=== PATIENT | male | born 1980 | race Caucasian/White ===

== ENCOUNTER 2017-05-28 18:10 | Emergency (ER) | payer MEDICARE, MEDICAID ==
[~2017-05-28] VITALS: Ht 175.3 cm; Wt 103.4 kg
[~2017-05-28 18:10] MED LIST: ACET500C3 PO; BUPR150T73 PO; FLUO20CA19 PO; HYDR50CA PO; OXYC-302 PO; PALI234D IM; PALI234D INJ; TOPI50TA35 PO
[2017-05-28 18:11] VITALS: BP 120/84
== END 2017-05-28 18:33 | disposition home or self-care (01) ==
LOC: ED 18:30
DX: T63.301A Toxic effect of unspecified spider venom, accidental (unintentional), initial encounter (principal); F31.9 Bipolar disorder, unspecified; Y93.89 Activity, other specified; Y99.8 Other external cause status; Y92.89 Other specified places as the place of occurrence of the external cause
CPT/HCPCS: 99283

== ENCOUNTER 2019-02-04 15:41 | Emergency (ER) | payer MEDICARE, MEDICAID ==
[~2019-02-04] VITALS: Ht 177.8 cm; Wt 85.0 kg
--- NOTE | 2019-02-04 15:46 | NUR ---
BIB [facility]. C/O WILLETT and auditory and visual hallucinations. Denies HI/SI. Received monthly Invega dose 4 days ago. Will continue to monitor.
[2019-02-04] MEDS ORDERED: ZIPRASIDONE 20 MG INJ IM ONE ×2 (15:50→16:00)
[2019-02-04] MEDS ORDERED: IBUPROFEN 800 MG TABLET ONE (15:50)
[2019-02-04] MEDS ORDERED: IBUPROFEN 800 MG TABLET PO ONE (16:00)
[2019-02-04 16:10] LABS: BASOPHILS # (AUTO) 0.01 x10^3/uL (0-0.1); BASOPHILS % (AUTO) 0 % (0-1); EOSINOPHILS # (AUTO) 0.04 x10^3/uL (0-0.4); EOSINOPHILS % (AUTO) 1 % (1-7); LYMPHOCYTES # (AUTO) 2.25 x10^3/uL (1-3.4); LYMPHOCYTES % (AUTO) 34 % (22-44); MD NO; MEAN CORPUSCULAR HEMOGLOBIN 31.3 pg (27.5-34.5); MEAN CORPUSCULAR HGB CONC 34.6 g/dL (33.2-36.2); MEAN CORPUSCULAR VOLUME 90.6 fL (81-97); MEAN PLATELET VOLUME 7.8 fL (7.4-10.4); MONOCYTES # (AUTO) 0.48 x10^3/uL (0.2-0.8); MONOCYTES % (AUTO) 7 % (2-9); NEUTROPHILS # (AUTO) 3.93 x10^3/uL (1.8-6.8); NEUTROPHILS % (AUTO) 59 % (42-75); PLATELET COUNT 295 x10^3/uL (130-400); RED BLOOD COUNT 4.64 x10^6/uL (4.38-5.82); RED CELL DISTRIBUTION WIDTH 13.3 % (9.4-14.8)
[2019-02-04 16:22] LABS: ALBUMIN 3.5 g/dL (3.4-5.0); ANION GAP 5 mmol/L (5-15); CALCIUM 8.6 mg/dL (8.5-10.1); CHLORIDE 113 mmol/L (98-107); CREATININE 1.34 mg/dL (0.7-1.3)
[2019-02-04 16:30] VITALS: BP 117/76
--- NOTE | 2019-02-04 16:30 | NUR ---
Resting comfortably in [facility]. VSS. No other needs.
--- NOTE | 2019-02-04 16:59 | NUR ---
Float RN: Pt walked from room to restroom unassisted w/ steady gait.
--- NOTE | 2019-02-04 17:06 | NUR ---
Rianna RN: Patient given discharge instructions and they have confirmed that they understand the instructions. Pt promptly threw d/c instructions into garbage.
== END 2019-02-04 17:08 | disposition home or self-care (01) ==
LOC: ED 17:00
DX: F31.9 Bipolar disorder, unspecified (principal); F23 Brief psychotic disorder; F06.0 Psychotic disorder with hallucinations due to known physiological condition; F41.1 Generalized anxiety disorder; G89.29 Other chronic pain; Z90.89 Acquired absence of other organs; Z90.49 Acquired absence of other specified parts of digestive tract
CPT/HCPCS: 36415; 80048; 82040; 85025; 99284; J3486

== ENCOUNTER 2019-04-06 15:14 | Emergency (ER) | payer MEDICARE, MEDICAID ==
[~2019-04-06] VITALS: Ht 175.3 cm; Wt 98.0 kg
[2019-04-06 15:18] VITALS: BP 104/70
== END 2019-04-06 15:55 | disposition home or self-care (01) ==
LOC: ED 15:50
DX: K08.89 Other specified disorders of teeth and supporting structures (principal); F41.1 Generalized anxiety disorder; G43.909 Migraine, unspecified, not intractable, without status migrainosus; F31.9 Bipolar disorder, unspecified; F09 Unspecified mental disorder due to known physiological condition
CPT/HCPCS: 99283

== ENCOUNTER 2019-04-07 12:11 | Emergency (ER) | payer MEDICARE, MEDICAID ==
[~2019-04-07] VITALS: Ht 175.3 cm; Wt 98.5 kg
[2019-04-07 12:20] VITALS: BP 132/81
== END 2019-04-07 20:32 ==
LOC: ED 14:14
DX: F33.1 Major depressive disorder, recurrent, moderate (principal); G89.4 Chronic pain syndrome
CPT/HCPCS: 36415; 80048; 80307; 82040; 85025; 99284; 99285

== ENCOUNTER 2019-04-07 19:27 | Inpatient (IN) | payer MEDICARE, MEDICAID ==
[~2019-04-07] VITALS: Ht 175.3 cm; Wt 100.0 kg
[2019-04-07] MEDS ORDERED: POLYETHYLENE GLYCOL 17 GM PACKET PO PRN (20:00)
[2019-04-07] MEDS ORDERED: DOCUSATE 100 MG CAPSULE PO PRN (20:00)
[2019-04-07] MEDS ORDERED: BISACODYL 10 MG SUPP PR PRN (20:00)
[2019-04-07 20:46] VITALS: BP_SYST 113; BP_SYST 134; BP_SYST 138; BP_DIAS 77; BP_DIAS 89
[2019-04-07] MEDS ORDERED: NICOTINE 21 MG/24 HR PATCH.TD24 TD ONE (22:30)
[2019-04-08] MEDS: ACETAMINOPHEN 325 MG TABLET PO PRN ×2 (05:56→20:16)
[2019-04-08 06:04] LABS: MICROSCOPIC NOT IND
[2019-04-08 06:10] LABS: CULTURE INDICATED? NO
[2019-04-08 06:13] LABS: ANION GAP 8 mmol/L (5-15); CALCIUM 8.9 mg/dL (8.5-10.1); CHLORIDE 110 mmol/L (98-107); CHOLESTEROL, TOTAL 181 mg/dL (140-239)
[2019-04-08 06:39] LABS: CHOL/HDL RATIO 4.3; FREE T4 (FREE THYROXINE) 0.95 ng/dL (0.76-1.46); HDL CHOL % 23 % (26-37); HDL CHOLESTEROL (DIRECT) 42 mg/dL (40-60); LDL CHOLESTEROL,CALCULATED 78 mg/dL (54-169); LDL/HDL RATIO 1.9 (0.5-3.0); TRIGLYCERIDES 305 mg/dL (50-200); VLDL CHOLESTEROL 61 mg/dL (0-25)
[2019-04-08 07:34] VITALS: BP 124/83
[2019-04-08] MEDS: NICOTINE GUM 2 MG BC PRN ×4 (11:51→22:50)
[2019-04-08] MEDS: hydrOXyzine 50MG TABLET PO PRN (11:51)
[2019-04-08] MEDS ORDERED: BUPRENORPHINE/NALOXONE 2-0.5MG SL SCH (15:30)
[2019-04-08 19:21] VITALS: BP 131/84
[2019-04-08] MEDS: ARIPIPRAZOLE 5 MG TABLET PO SCH (20:16)
[2019-04-08] MEDS: HYDROXYZINE PAMOATE 50MG CAP PO PRN (23:41)
[2019-04-09] MEDS ORDERED: ARIP5TAB13 PO (03:50)
[2019-04-09] MEDS ORDERED: BUPR150T73 PO (03:51)
[2019-04-09] MEDS ORDERED: HYDR50CA PO (03:52)
[2019-04-09] MEDS ORDERED: BUPR1FIL3 SL (03:53)
[2019-04-09] MEDS: BUPRENORPHINE/NALOXONE 2-0.5MG SL SCH ×3 (05:09→21:29)
[2019-04-09 07:29] VITALS: BP 107/79
[2019-04-09] MEDS: NICOTINE GUM 2 MG BC PRN ×4 (07:29→20:31)
[2019-04-09] MEDS ORDERED: BUPRENORPHINE/NALOXONE 2-0.5MG SL SCH (08:00)
[2019-04-09] MEDS: BUPROPION SR 150 MG TABLET PO SCH (09:20)
[2019-04-09] MEDS: hydrOXyzine 50MG TABLET PO PRN (13:02)
[2019-04-09] MEDS: HYDROXYZINE PAMOATE 50MG CAP PO PRN (19:17)
[2019-04-09 19:52] VITALS: BP 136/84
[2019-04-09] MEDS: ARIPIPRAZOLE 5 MG TABLET PO SCH (21:29)
[2019-04-10] MEDS: NICOTINE GUM 2 MG BC PRN ×5 (00:03→20:51)
[2019-04-10 07:10] VITALS: BP 123/82
[2019-04-10] MEDS: HYDROXYZINE PAMOATE 50MG CAP PO PRN (08:47)
[2019-04-10] MEDS: BUPROPION SR 150 MG TABLET PO SCH (08:47)
[2019-04-10] MEDS: BUPRENORPHINE/NALOXONE 2-0.5MG SL SCH ×2 (09:47→20:51)
[2019-04-10] MEDS ORDERED: ALUMINUM/MAG/SIMETHICONE 30 ML UDC ONE (11:42)
[2019-04-10 19:46] VITALS: BP 136/90
[2019-04-10] MEDS: ARIPIPRAZOLE 5 MG TABLET PO SCH (20:51)
[2019-04-11] MEDS: NICOTINE GUM 2 MG BC PRN ×2 (00:37→06:30)
[2019-04-11] MEDS ORDERED: BUPR150T73 PO (07:05)
[2019-04-11] MEDS ORDERED: ARIP5TAB19 PO (07:05)
[2019-04-11 07:17] VITALS: BP 111/82
[2019-04-11] MEDS: BUPROPION SR 150 MG TABLET PO SCH (08:29)
[2019-04-11] MEDS: ACETAMINOPHEN 325 MG TABLET PO PRN (08:29)
== END 2019-04-11 09:05 | disposition home or self-care (01) | DRG 885 ==
LOC: 3E 20:42
PROVIDERS: ADMIT Psychiatry & Neurology Psychosomatic Medicine; ATTEND Psychiatry & Neurology Psychosomatic Medicine
DX: F25.0 Schizoaffective disorder, bipolar type (principal); N17.0 Acute kidney failure with tubular necrosis; R45.851 Suicidal ideations; F11.20 Opioid dependence, uncomplicated; F17.210 Nicotine dependence, cigarettes, uncomplicated; Z80.8 Family history of malignant neoplasm of other organs or systems; Z76.5 Malingerer [conscious simulation]; Z80.0 Family history of malignant neoplasm of digestive organs; Z81.8 Family history of other mental and behavioral disorders; Z79.899 Other long term (current) drug therapy; Z90.49 Acquired absence of other specified parts of digestive tract; Z88.8 Allergy status to other drugs, medicaments and biological substances; Z91.030 Bee allergy status
CPT/HCPCS: 36415; 71045; 80048; 80061; 81003; 82140; 82607; 84439; 84443; 86592; 93005

== ENCOUNTER 2019-04-11 21:52 | Emergency (ER) | payer MEDICARE, MEDICAID ==
[~2019-04-11] VITALS: Ht 175.3 cm; Wt 100.1 kg
[~2019-04-11 21:52] MED LIST changes: +ARIP5TAB13 PO; +ARIP5TAB19 PO; +BUPR1FIL3 SL
--- NOTE | 2019-04-11 22:10 | NUR ---
States d/c from [facility] today and took 30, 600 mg, ibuprofen. States "i dont want to make it anymore... my mom just ....i just dont want to be alive anymore." Belongings moved to locker: 1 personal belongings bag and 1 backpack. Urine specimen collected and sent to lab. Pt resting on gurney, calm, cooperative, vitals stable, respirations even and unlabored, no apparent distress noted.
[2019-04-11 22:58] LABS: AMPHETAMINE SCREEN, URINE Negative (Negative); BARBITURATE SCREEN, URINE Negative (Negative); BENZODIAZEPINE SCREEN, URINE Negative (Negative); CANNABINOID SCREEN, URINE Negative (Negative); COCAINE SCREEN, URINE Negative (Negative); METHADONE SCREEN, URINE Negative (Negative); OPIATE SCREEN, URINE Negative (Negative)
--- NOTE | 2019-04-11 23:33 | NUR ---
Pt resting on gurney, resting w/ eyes closed, arouses to voice. Calm and cooperative. Pt denies pain or nausea, no distress noted, vitals stable, waiting for orders.
[2019-04-12 00:26] LABS: BASOPHILS # (AUTO) 0.02 x10^3/uL (0-0.1); BASOPHILS % (AUTO) 0 % (0-1); EOSINOPHILS # (AUTO) 0.21 x10^3/uL (0-0.4); EOSINOPHILS % (AUTO) 2 % (1-7); LYMPHOCYTES # (AUTO) 2.74 x10^3/uL (1-3.4); LYMPHOCYTES % (AUTO) 31 % (22-44); MD NO; MEAN CORPUSCULAR HEMOGLOBIN 31.1 pg (27.5-34.5); MEAN CORPUSCULAR HGB CONC 33.7 g/dL (33.2-36.2); MEAN CORPUSCULAR VOLUME 92.1 fL (81-97); MEAN PLATELET VOLUME 7.8 fL (7.4-10.4); MONOCYTES # (AUTO) 0.59 x10^3/uL (0.2-0.8); MONOCYTES % (AUTO) 7 % (2-9); NEUTROPHILS # (AUTO) 5.18 x10^3/uL (1.8-6.8); NEUTROPHILS % (AUTO) 59 % (42-75); PLATELET COUNT 304 x10^3/uL (130-400); RED BLOOD COUNT 5.27 x10^6/uL (4.38-5.82); RED CELL DISTRIBUTION WIDTH 13.4 % (9.4-14.8)
[2019-04-12 00:39] LABS: ALANINE AMINOTRANSFERASE 41 U/L (12-78); ALBUMIN 3.5 g/dL (3.4-5.0); ANION GAP 8 mmol/L (5-15); CALCIUM 8.9 mg/dL (8.5-10.1); CHLORIDE 106 mmol/L (98-107); CREATININE 1.44 mg/dL (0.7-1.3); SALICYLATE LEVEL 3.3 mg/dL (2.8-20.0)
[2019-04-12 00:41] LABS: ALKALINE PHOSPHATASE 58 U/L (45-117); BILIRUBIN,TOTAL 0.6 mg/dL (0.2-1.0); TOTAL PROTEIN 6.8 g/dL (6.4-8.2)
--- NOTE | 2019-04-12 01:16 | NUR ---
PER DR ALATORRE PT TO STAY IN ED UNTIL HE IS ABLE TO BE ASSESSED BY A MEMBER OF PSYCHIATRY TEAM PT WAS JUST DC'D FROM THAT FLOOR. SPOKE TO ROGERS Pereira [employer] [facility]ED[facility] WHOM STATES THEY WILL BE IN CONTACT WITH THEIR PSCHIATRIST ABOUT HE PATIENT AND CALL US BACK WITH THEIR DESIRED POC.
--- NOTE | 2019-04-12 01:25 | NUR ---
Ermelinda olvera in ED - 04/12/19 at 0126 by AURELIANO REPORT OF PT FROM [facility] AND ASSUMING CARE OF PT AT THIS TIME.
--- NOTE | 2019-04-12 01:26 | NUR ---
REPORT OF PT FROM SHOLA PLUMMER AND ASSUMING CARE OF PT AT THIS TIME
--- NOTE | 2019-04-12 01:30 | NUR ---
Psychiatrist has been paged regarding possible re-admit to [facility].
--- NOTE | 2019-04-12 01:42 | NUR ---
REPORT OF PT TO SHOLA PETERSEN.
--- NOTE | 2019-04-12 01:42 | NUR ---
Pt report from Raul lyles. This rn to assume care of pt. Roller doors in place. Sitter in hallway. No immediate needs from pt.
--- NOTE | 2019-04-12 01:45 | NUR ---
Elissa from [facility] called back and states that Dr. Gonzalez is denying the patient back on [facility].
--- NOTE | 2019-04-12 01:53 | NUR ---
Psychiatrist states to send pt to another psyche facility. Informed ED willing to take pt on 2N if needed. Current POC per ED is to keep pt and request that a psyche STRETCHER OPERATOR evals pt in AM.
--- NOTE | 2019-04-12 03:00 | NUR ---
Pt sleeping comfortably on gurney. Given kenny crackers and soda per request. No other immediate needs.
--- NOTE | 2019-04-12 04:05 | NUR ---
RR even and unlabored. Nadn at this time. hospital bed ordered.
--- NOTE | 2019-04-12 04:53 | NUR ---
Pt moved to hospital bed. Eating kenny crackers. NADN. No immediate needs.
--- NOTE | 2019-04-12 05:28 | NUR ---
Patient with medicare insurance and patient already denied by [facility] ([facility]) so packet faxed to [facility], [facility], [facility], and [facility]. All conformations received and conformation sheet placed on chart.
--- NOTE | 2019-04-12 05:39 | NUR ---
RR even and unlabored. Nadn at this time.
--- NOTE | 2019-04-12 06:18 | NUR ---
Will pass on in report to request psyche eval by WASTE/MATERIALS EXCHANGE SPECIALIST for disposition.
--- NOTE | 2019-04-12 06:49 | NUR ---
REPORT TAKEN FROM SHOLA PETERSEN. PT AMBULATED TO DESK TO ASK FOR BREAKFAST.
--- NOTE | 2019-04-12 06:54 | NUR ---
SITTER IN HALLWAY. ROOM SECURED. PT RESTING ON HOSPITAL BED IN ROOM.
--- NOTE | 2019-04-12 07:57 | NUR ---
PT PROVIDED W/ SI BREAKFAST TRAY.
[2019-04-12 08:05] VITALS: BP 111/77
--- NOTE | 2019-04-12 09:24 | NUR ---
PT RESTING ON GURNEY. SAHU. SITTER IN [facility]. ROOM SECURED.
--- NOTE | 2019-04-12 10:00 | NUR ---
PT RESTING ON HOSPITAL BED. DENIES NEEDS. NADN. ROOM SECURE. SITTER IN HALLWAY.
--- NOTE | 2019-04-12 11:29 | NUR ---
THROUGHPUT RN CALLED PSYCH UPSET WELDING MACHINE OPERATOR STRESS ENGINEER WHO WILL CALL BACK ABOUT COMING TO ASSESS PT. PT RESTING IN [facility]. LUNCH ORDERED. HAZELN. ROOM SECURE. SITTER IN HALLWAY.
--- NOTE | 2019-04-12 12:25 | NUR ---
LUNCH RN: PT RESTING IN BED WITH NADN AND EQUAL CHEST RISE AND GOOD CAP REFILL. NO NEEDS AT THIS TIME TIME.
--- NOTE | 2019-04-12 12:47 | NUR ---
PT PROVIDED W/ SI LUNCH TRAY. PSYCH SHELTER CASE MANAGER SPOKE W/ PT. LEGAL HOLD TO BE DECERTIFIED.
== END 2019-04-12 13:04 | disposition home or self-care (01) ==
LOC: ED 23:02
DX: R45.851 Suicidal ideations (principal); F32.9 Major depressive disorder, single episode, unspecified; Z00.00 Encounter for general adult medical examination without abnormal findings; F41.1 Generalized anxiety disorder; F17.200 Nicotine dependence, unspecified, uncomplicated; Z90.49 Acquired absence of other specified parts of digestive tract; Z90.89 Acquired absence of other organs
CPT/HCPCS: 36415; 80053; 80307; 85025; 99284

== ENCOUNTER 2019-08-31 00:27 | Emergency (ER) | payer MEDICAID, OTHER ==
[~2019-08-31] VITALS: Ht 175.3 cm; Wt 98.0 kg
[~2019-08-31 00:27] MED LIST changes: -ARIP5TAB19 PO; +ARIP5TAB56 PO
[2019-08-31 00:29] VITALS: BP 124/65
== END 2019-08-31 00:50 | disposition left against medical advice (07) ==
LOC: ED 00:40
DX: R68.89 Other general symptoms and signs (principal); Z76.0 Encounter for issue of repeat prescription; Z53.21 Procedure and treatment not carried out due to patient leaving prior to being seen by health care provider

== ENCOUNTER 2020-01-10 14:39 | Emergency (ER) | payer MEDICARE, MEDICAID ==
[~2020-01-10] VITALS: Ht 175.3 cm; Wt 102.3 kg
--- NOTE | 2020-01-10 15:56 | NUR ---
PT LAYING IN BED, PROVIDED PILLOW, VSS, WILL CONTINUE TO MONITOR.
[2020-01-10] MEDS ORDERED: BUPRENORPHINE/NALOXONE 8-2MG SL ONE (17:00)
[2020-01-10 17:24] VITALS: BP 129/83
== END 2020-01-10 17:27 | disposition home or self-care (01) ==
LOC: ED 15:19
DX: F32.9 Major depressive disorder, single episode, unspecified (principal); F19.20 Other psychoactive substance dependence, uncomplicated; G43.909 Migraine, unspecified, not intractable, without status migrainosus; G89.29 Other chronic pain; F17.200 Nicotine dependence, unspecified, uncomplicated; Z76.0 Encounter for issue of repeat prescription; Z90.49 Acquired absence of other specified parts of digestive tract
CPT/HCPCS: 99281; J0574

== ENCOUNTER 2020-01-20 18:33 | Emergency (ER) | payer MEDICARE, MEDICAID ==
[~2020-01-20] VITALS: Ht 175.3 cm; Wt 101.0 kg
[2020-01-20 18:38] VITALS: BP 154/95
--- NOTE | 2020-01-20 19:18 | NUR ---
PT CAME INTO ED CO OF "SUICIDAL THOUGHTS. I MIGHT SWALLOW A BUNCH OF PILLS". PT ADMITS TO HAVING ATTEMPTING SUICIDE IN THE PAST. PT BELONGINGS ARE LOCKED UP IN THE SECURITY LOCKER. PT HAS 2 WHITE PT BELONGING BAGS AND 2 BLACK BACKPACK. PT IS RESTING IN [facility]. IS BEDSIDE.
[2020-01-20 19:53] LABS: ALBUMIN 3.5 g/dL (3.4-5.0); ANION GAP 5 mmol/L (5-15); CALCIUM 8.9 mg/dL (8.5-10.1); CHLORIDE 109 mmol/L (98-107); CREATININE 1.12 mg/dL (0.7-1.3); SALICYLATE LEVEL 4.7 mg/dL (2.8-20.0)
[2020-01-20 19:54] LABS: BASOPHILS # (AUTO) 0.03 x10^3/uL (0-0.1); BASOPHILS % (AUTO) 1 % (0-1); EOSINOPHILS % (AUTO) 3 % (1-7); LYMPHOCYTES # (AUTO) 1.83 x10^3/uL (1-3.4); LYMPHOCYTES % (AUTO) 30 % (22-44); MD NO; MEAN CORPUSCULAR HEMOGLOBIN 30.1 pg (27.5-34.5); MEAN CORPUSCULAR HGB CONC 33.8 g/dL (33.2-36.2); MEAN CORPUSCULAR VOLUME 89.1 fL (81-97); MEAN PLATELET VOLUME 8.1 fL (7.4-10.4); MONOCYTES # (AUTO) 0.38 x10^3/uL (0.2-0.8); MONOCYTES % (AUTO) 6 % (2-9); NEUTROPHILS # (AUTO) 3.63 x10^3/uL (1.8-6.8); NEUTROPHILS % (AUTO) 60 % (42-75); PLATELET COUNT 249 x10^3/uL (130-400); RED BLOOD COUNT 4.76 x10^6/uL (4.38-5.82); RED CELL DISTRIBUTION WIDTH 13.6 % (9.4-14.8)
[2020-01-20 20:04] LABS: FREE T4 (FREE THYROXINE) 1.06 ng/dL (0.76-1.46)
--- NOTE | 2020-01-20 20:17 | NUR ---
PT PROVIDED SANDWICH, CHIPS, AND WATER. UA COLLECTED AND SENT TO LAB.
[2020-01-20 20:19] LABS: AMPHETAMINE SCREEN, URINE Negative (Negative); BARBITURATE SCREEN, URINE Negative (Negative); BENZODIAZEPINE SCREEN, URINE Negative (Negative); CANNABINOID SCREEN, URINE Negative (Negative); COCAINE SCREEN, URINE Negative (Negative); METHADONE SCREEN, URINE Negative (Negative); OPIATE SCREEN, URINE Negative (Negative)
--- NOTE | 2020-01-20 20:54 | NUR ---
PATIENT IN ROOM RESTING, EVEN UNLABORED RESPIRATIONS NOTED, NO NOTED ACUTE DISTRESS. TOLERATING INTERNVETIONS WELL. NO NOTED NEEDS AT THIS TIME. WILL AWAIT FOR FURTHER ORDERS. WILL CONTINUE TO MONITOR.
--- NOTE | 2020-01-20 20:59 | NUR ---
REPORT GIVEN TO ONCOMING RN, RELINQUISH OF CARE.
--- NOTE | 2020-01-20 21:06 | NUR ---
Report received from SHOLA Trimble. This RN to assume care.
--- NOTE | 2020-01-20 22:02 | NUR ---
Francine from [facility] to look over patients chart and see whether they would like to accept patient.
--- NOTE | 2020-01-20 22:14 | NUR ---
Patient sleeping in rtate. Respirations even and unlabored. Room secured; sitter outside. Belongings locked in cabinet.
--- NOTE | 2020-01-20 23:27 | NUR ---
Patient sleeping in [place]. Respirations even and unlabored. Room secured; sitter outside. Belongings locked in cabinet.
--- NOTE | 2020-01-20 23:34 | NUR ---
Spoke with SHOLA Escamilla from [facility]. Dr. Grande to accept patient. Patient to be transferred to room 388.
[2020-01-21] MEDS ORDERED: BENZ1TAB61 PO (03:07)
== END 2020-01-20 19:27 ==
LOC: ED 19:21
DX: R45.851 Suicidal ideations (principal); F33.3 Major depressive disorder, recurrent, severe with psychotic symptoms; G89.29 Other chronic pain; G43.909 Migraine, unspecified, not intractable, without status migrainosus; Z90.89 Acquired absence of other organs; Z90.49 Acquired absence of other specified parts of digestive tract; Z87.891 Personal history of nicotine dependence
CPT/HCPCS: 36415; 80048; 80307; 82040; 84439; 84443; 85025; 99284; 99285

== ENCOUNTER 2020-01-20 23:41 | Inpatient (IN) | payer MEDICARE, MEDICAID ==
[~2020-01-20] VITALS: Ht 175.3 cm; Wt 98.7 kg
[2020-01-21] MEDS ORDERED: BISACODYL 10 MG SUPP PR PRN
[2020-01-21] MEDS ORDERED: ONDANSETRON ODT 4 MG PO PRN
[2020-01-21] MEDS ORDERED: POLYETHYLENE GLYCOL 17 GM PACKET PO PRN
[2020-01-21] MEDS ORDERED: DOCUSATE 100 MG CAPSULE PO PRN
[2020-01-21 00:02] VITALS: BP 103/67
[2020-01-21 01:30] LABS: MICROSCOPIC NOT IND
[2020-01-21 01:31] LABS: CULTURE INDICATED? NO
[2020-01-21 01:48] VITALS: BP 103/67
[2020-01-21] MEDS ORDERED: BENZ1TAB61 PO (03:07)
[2020-01-21] MEDS ORDERED: ACETAMINOPHEN 325 MG TABLET PO PRN ×2 (10:00)
[2020-01-21] MEDS ORDERED: NICOTINE 21 MG/24 HR PATCH.TD24 TD ONE (10:00)
[2020-01-21] MEDS ORDERED: ARIPIPRAZOLE 400 MG INJ NC IM ONE (14:00)
[2020-01-21] MEDS ORDERED: BUPRENORPHINE/NALOXONE 8-2MG SL ONE (14:00)
[2020-01-21] MEDS ORDERED: QUETIAPINE 25MG TABLET ONE (18:20)
[2020-01-21] MEDS: QUETIAPINE 25MG TABLET PO PRN (18:22)
[2020-01-21 19:58] VITALS: BP 100/67
[2020-01-21] MEDS: BUPRENORPHINE/NALOXONE 8-2MG SL SCH ×2 (20:40→23:08)
[2020-01-22 07:38] VITALS: BP 101/64
[2020-01-22] MEDS: BUPRENORPHINE/NALOXONE 8-2MG SL SCH ×2 (08:40→20:14)
[2020-01-22] MEDS: NICOTINE 21 MG/24 HR PATCH.TD24 TD SCH (08:51)
[2020-01-22] MEDS: QUETIAPINE 25MG TABLET PO PRN (12:06)
[2020-01-22 19:49] VITALS: BP 117/75
[2020-01-23 07:00] VITALS: BP 115/84
[2020-01-23] MEDS: NICOTINE 21 MG/24 HR PATCH.TD24 TD SCH (08:29)
[2020-01-23] MEDS: PALIPERIDONE 3 MG TAB.ER.24 PO SCH (08:30)
[2020-01-23] MEDS: BUPRENORPHINE/NALOXONE 8-2MG SL SCH ×2 (08:30→20:24)
[2020-01-23] MEDS: QUETIAPINE 25MG TABLET PO PRN (15:25)
[2020-01-23 19:50] VITALS: BP 123/74
[2020-01-23] MEDS ORDERED: HYDROXYZINE PAMOATE 25MG CAP ONE (20:41)
[2020-01-23] MEDS ORDERED: HYDROXYZINE PAMOATE 50MG CAP PO PRN (21:00)
[2020-01-24 07:49] VITALS: BP 114/76
[2020-01-24] MEDS: BUPRENORPHINE/NALOXONE 8-2MG SL SCH (08:30)
[2020-01-24] MEDS: PALIPERIDONE 3 MG TAB.ER.24 PO SCH (08:30)
[2020-01-24] MEDS: NICOTINE 21 MG/24 HR PATCH.TD24 TD SCH (08:31)
[2020-01-24] MEDS ORDERED: PALI3TAB11 PO (09:11)
== END 2020-01-24 10:00 | disposition home or self-care (01) | DRG 885 ==
LOC: 3E 01-21 00:06
PROVIDERS: ADMIT Psychiatry & Neurology Psychosomatic Medicine; ATTEND Psychiatry & Neurology Psychosomatic Medicine
DX: F25.0 Schizoaffective disorder, bipolar type (principal); F11.20 Opioid dependence, uncomplicated; E66.9 Obesity, unspecified; F17.200 Nicotine dependence, unspecified, uncomplicated; G47.00 Insomnia, unspecified; G89.29 Other chronic pain; F29 Unspecified psychosis not due to a substance or known physiological condition; Z68.32 Body mass index [BMI] 32.0-32.9, adult; Z90.49 Acquired absence of other specified parts of digestive tract; Z71.6 Tobacco abuse counseling; Z72.89 Other problems related to lifestyle
CPT/HCPCS: 71045; 81003; 93005

== ENCOUNTER 2020-02-25 11:17 | Emergency (ER) | payer MEDICARE, MEDICAID ==
[~2020-02-25] VITALS: Ht 175.3 cm; Wt 99.0 kg
[~2020-02-25 11:17] MED LIST changes: +BENZ1TAB61 PO; +PALI3TAB11 PO
[2020-02-25 11:19] VITALS: BP 127/80
--- NOTE | 2020-02-25 11:41 | NUR ---
pt seen by MANUEL Craig, during initial assessment, pt became upset and walked out of room, out of department. relief charge nurse aware. pt ambulatory with steady gait at time of departure.
== END 2020-02-25 11:42 | disposition left against medical advice (07) ==
LOC: ED 11:30
DX: F32.9 Major depressive disorder, single episode, unspecified (principal)
CPT/HCPCS: 99281

== ENCOUNTER 2020-02-27 00:20 | Emergency (ER) | payer MEDICARE, MEDICAID ==
[~2020-02-27] VITALS: Ht 175.3 cm; Wt 102.1 kg
--- NOTE | 2020-02-27 00:37 | NUR ---
PT AMBULATED BACK TO THE ROOM WITH A SMOOTH AND STEADY GAIT, NAD, RESP WNL, SKIN COLOR WNL WARM AND DRY. DENIES ADDITIONAL NEEDS AT THIS TIME, CALL LIGHT ON LAP. WCTM. MED REQUESTED FROM PHARMACY.
[2020-02-27 00:57] VITALS: BP 136/92
[2020-02-27] MEDS ORDERED: ARIPIPRAZOLE 400 MG INJ NC IM ONE (01:00)
--- NOTE | 2020-02-27 01:15 | NUR ---
Patient given discharge instructions and they have confirmed that they understand the instructions. Patient ambulatory with steady gait. Denies additional questions at this time, NAD, RESP WNL, P/W/D, pt left with all belongings.
== END 2020-02-27 01:17 | disposition home or self-care (01) ==
LOC: ED 00:50
DX: F31.9 Bipolar disorder, unspecified (principal); F20.5 Residual schizophrenia; F20.9 Schizophrenia, unspecified; Z76.0 Encounter for issue of repeat prescription; G89.29 Other chronic pain; Z90.89 Acquired absence of other organs; Z90.49 Acquired absence of other specified parts of digestive tract; Z87.891 Personal history of nicotine dependence
CPT/HCPCS: 96372; 99283

== ENCOUNTER 2020-03-02 16:44 | Emergency (ER) | payer MEDICARE, MEDICAID ==
[~2020-03-02] VITALS: Ht 175.3 cm; Wt 103.2 kg
[2020-03-02 16:47] VITALS: BP 132/86
[2020-03-02] MEDS ORDERED: LIDOCAINE 1%, 10ML INFIL ONE (17:30)
[2020-03-02] MEDS ORDERED: BUPIVACAINE 0.25% INFIL ONE (17:30)
[2020-03-02] MEDS ORDERED: BUPIVACAINE 0.25% ONE (17:32)
[2020-03-02] MEDS ORDERED: LIDOCAINE-MPF 1%, 5ML ONE (17:32)
== END 2020-03-02 18:06 | disposition home or self-care (01) ==
LOC: ED 18:03
DX: K02.9 Dental caries, unspecified (principal); K04.7 Periapical abscess without sinus; Z72.9 Problem related to lifestyle, unspecified
CPT/HCPCS: 64400; 99284

== ENCOUNTER 2020-03-20 22:59 | Emergency (ER) | payer MEDICARE, MEDICAID ==
[~2020-03-20] VITALS: Ht 175.3 cm; Wt 101.7 kg
[2020-03-21] MEDS ORDERED: OLANZAPINE 10 MG TABLET ONE (03:26)
[2020-03-21] MEDS ORDERED: LORazepam 1MG TABLET ONE (03:26)
[2020-03-21] MEDS ORDERED: LORazepam 1MG TABLET PO ONE (03:30)
[2020-03-21] MEDS ORDERED: OLANZAPINE 10 MG TABLET PO ONE (03:30)
[2020-03-21 03:36] VITALS: BP 126/76
== END 2020-03-21 03:38 | disposition home or self-care (01) ==
LOC: ED 03-21 02:53
DX: F20.0 Paranoid schizophrenia (principal); I10 Essential (primary) hypertension; E11.9 Type 2 diabetes mellitus without complications; G89.29 Other chronic pain; Z90.89 Acquired absence of other organs; Z90.49 Acquired absence of other specified parts of digestive tract
CPT/HCPCS: 99284

== ENCOUNTER 2020-05-01 15:15 | Emergency (ER) | payer MEDICARE, MEDICAID ==
[~2020-05-01] VITALS: Ht 175.3 cm; Wt 105.2 kg
[2020-05-01 15:38] VITALS: BP 120/75
--- NOTE | 2020-05-01 15:43 | NUR ---
CASE WORK AIDE: LOTTIE GOMEZ FROM [facility]. MEDICAL RECORDS REQUEST SIGNED AND GIVEN TO MT TO FAX. PT STATES HE MIGHT LEAVE BEFORE BEING SEEN. EDUCATED THAT HE SHOULD STAY IF HE FEELS UNWELL.
--- NOTE | 2020-05-01 16:56 | NUR ---
NIL X 1 [phone] CHECKED RESTROOM WELL
--- NOTE | 2020-05-01 17:15 | NUR ---
NOT IN LOBBY X2
--- NOTE | 2020-05-01 17:56 | NUR ---
NIL X 3
== END 2020-05-01 17:57 | disposition left against medical advice (07) ==
LOC: ED 17:15